=== PATIENT | male | born 2000 | race Caucasian/White ===

== ENCOUNTER 2023-01-12 05:17 | Emergency (ER) | payer BC ==
[2023-01-12 05:28] VITALS: BMI 38.5
[2023-01-12] MEDS ORDERED: ONDANSETRON 4 MG/2 ML VIAL IVPUSH ONE (05:44)
[2023-01-12] MEDS ORDERED: SODIUM CHLORIDE 1,000 ML IV STA (05:44)
[2023-01-12] MEDS ORDERED: MAG HYDROX/AL HYDROX/SIMETH 30 ML UNIT-DOSE CUP ONE (06:10)
[2023-01-12] MEDS ORDERED: ACETAMINOPHEN 1000 MG/100 ML BAG IVPB ONE (06:10)
[2023-01-12] MEDS ORDERED: FAMOTIDINE 20 MG/50 ML IVPB 20 MG/50 ML MG IVPB ONE (06:10)
[2023-01-12] MEDS ORDERED: FAMOTIDINE 20 MG TABLET PO ONE (06:10)
[2023-01-12] MEDS ORDERED: ACETAMINOPHEN INJECTION 100 ML IVPB ONE (06:10)
[2023-01-12] MEDS ORDERED: MAG HYDROX/AL HYDROX/SIMETH -MYLANTA- ORAL SUSPENSION PO ONE (06:10)
[2023-01-12 06:52] LABS: HEMATOCRIT 44.4 % (35.4-49); MCHC 33.9 g/dl (32.0-35.9); MEAN CELL VOLUME 85.5 fl (80-96); MEAN PLT VOLUME 7.8 fl (7.5-11.1); PLATELET COUNT 250 10^3/uL (134-434); RBC 5.19 M/mm3 (4.00-5.60); RDW 14.9 % (11.9-15.9); WHITE BLOOD COUNT 5.9 K/mm3 (4.0-10.0)
[2023-01-12 07:04] LABS: INR 1.09 (0.83-1.09); PROTHROMBIN TIME (PATIENT) 12.6 SEC (9.7-13.0)
[2023-01-12 07:07] LABS: ACTIVATED PTT 33.6 SECONDS (25.2-36.5)
[2023-01-12 07:29] LABS: CALCIUM 8.8 mg/dL (8.5-10.1)
[2023-01-12 07:30] LABS: ALBUMIN 3.8 g/dl (3.4-5.0)
[2023-01-12 07:33] LABS: CREATININE 0.8 mg/dL (0.55-1.3)
[2023-01-12 07:34] LABS: BILIRUBIN,TOTAL 0.4 mg/dL (0.2-1); TOT PROT 7.3 g/dl (6.4-8.2)
[2023-01-12 09:59] VITALS: BP 148/51; PULSE 73; RESP 15; TEMP 98.5
== END 2023-01-12 10:00 | disposition home or self-care (01) ==
LOC: JER 05:17
PROC: 3E0333Z Introduction of Anti-inflammatory into Peripheral Vein, Percutaneous Approach (ICD-10-PCS; principal; 2023-01-12)
PROC: 3E033GC Introduction of Other Therapeutic Substance into Peripheral Vein, Percutaneous Approach (ICD-10-PCS; 2023-01-12)
PROC: 3E0337Z Introduction of Electrolytic and Water Balance Substance into Peripheral Vein, Percutaneous Approach (ICD-10-PCS; 2023-01-12)
DX: R11.0 Nausea (principal); J02.9 Acute pharyngitis, unspecified; R07.89 Other chest pain
CPT/HCPCS: 36415; 71046-TC-FY; 80053; 83690; 84484; 85027; 85610; 85730; 93005; 93010; 99285-25; C9803-CS; U0003; U0005

== ENCOUNTER 2023-03-23 17:26 | Emergency (ER) | payer BC ==
[2023-03-23 17:45] VITALS: BP 120/81; PULSE 108; RESP 19; TEMP 98.5; BMI 38.5
[2023-03-23] MEDS ORDERED: SODIUM CHLORIDE 0.9% 500 ML INFUS.BAG IV ONE (19:17)
[2023-03-23 20:10] LABS: BASO % 0.6 % (0-2.0); EOS % 0.1 % (0-4.5); HEMATOCRIT 43.7 % (35.4-49); HEMOGLOBIN 15.3 GM/dL (11.7-16.9); LYMPH % 10.2 % (8-40); MCH 28.7 pg (25.7-33.7); MCHC 34.9 g/dl (32.0-35.9); MEAN CELL VOLUME 82.3 fl (80-96); MEAN PLT VOLUME 7.6 fl (7.5-11.1); MONO % 6.4 % (3.8-10.2); NEUT % 82.7 % (42.8-82.8); PLATELET COUNT 242 10^3/uL (134-434); RBC 5.31 M/mm3 (4.00-5.60); RDW 14.2 % (11.9-15.9); WHITE BLOOD COUNT 8.6 K/mm3 (4.0-10.0)
[2023-03-23 20:26] LABS: POTASSIUM 3.5 mmol/L (3.5-5.1)
[2023-03-23 20:29] LABS: BLOOD UREA NITROGEN 8.3 mg/dL (7-18)
[2023-03-23 20:31] LABS: CREATININE 0.9 mg/dL (0.55-1.3)
[2023-03-23 20:33] LABS: BILIRUBIN,TOTAL 0.8 mg/dL (0.2-1); TOT PROT 7.9 g/dl (6.4-8.2)
[2023-03-23 20:52] LABS: THROAT:GRP A STREP NOT DETECTED (NOTDETECTED)
== END 2023-03-23 20:52 | disposition home or self-care (01) ==
LOC: JER 17:26 → JERFT 17:26
DX: R11.2 Nausea with vomiting, unspecified (principal); R00.0 Tachycardia, unspecified; A08.4 Viral intestinal infection, unspecified; E86.0 Dehydration; Z20.822 Contact with and (suspected) exposure to COVID-19
CPT/HCPCS: 0241U-QW; 36415; 80053; 85025; 87651; 99284-25